=== PATIENT | male | born 1955 | race African-American/Black ===

== ENCOUNTER 2017-06-28 13:50 | Emergency (ER) | payer OTHER ==
[~2017-06-28] VITALS: Ht 175.3 cm; Wt 61.7 kg
[~2017-06-28 13:50] MED LIST: FOSAMAX 70 MG T70 M1; HYDROCHLOROTHIA25 M2 PO; HYDROXYCHLOROQ200 M1; MAXITROL EYE DRO5 ML OP; NABUMETONE 500500 M1; NORCO 5-325 TA1 EACH PO; NORFLEX100 MG; PERCOCET 5-3251 EACH PO; PLAQUENIL200 MG PO; PREDNISONE 20 M20 MG PO; PREDNISONE 5 MG5 M1 PO; SYMBICORT80 MCG/4.1; TRAMADOL 50 MG50 MG PO; ULTRAM 50MG TAB50 MG PO; ZOFRAN4 MG PO
[2017-06-28 15:00] LABS: HEMATOCRIT 39.2 % (42.0-52.0); HEMOGLOBIN 13.1 gm/dL (14.0-18.0); MCH 28.9 pg (26.0-34.0); MCHC 33.4 g/dL (28.0-37.0); MCV 86.6 fL (80.0-100.0); PLATELET COUNT 284 thou/uL (150-400); RBC 4.53 mil/uL (4.50-6.00); RDW 14.9 % (10.5-14.5); WBC 9.8 thou/uL (4.0-11.0)
[2017-06-28 15:06] LABS: MANUAL DIFF YES
[2017-06-28 15:20] LABS: CALCIUM 9.4 mg/dL (8.5-10.1); CREATININE 1.2 mg/dL (0.7-1.3)
[2017-06-28 15:27] LABS: ABSOLUTE NEUTROPHILS 7.8 thou/uL (1.4-8.2); PLATELET ESTIMATE NORMAL; TOTAL CELL COUNT 100
[2017-06-28] MEDS ORDERED: NAPROSYN500 MG PO (16:16)
[2017-06-28 16:35] VITALS: BP 115/75
== END 2017-06-28 16:36 | disposition home or self-care (01) ==
LOC: ER 13:50
PROVIDERS: Nurse Practitioner
DX: M25.552 Pain in left hip (principal); M19.90 Unspecified osteoarthritis, unspecified site; F17.210 Nicotine dependence, cigarettes, uncomplicated; Z88.1 Allergy status to other antibiotic agents; Z88.5 Allergy status to narcotic agent

== ENCOUNTER → 2019-11-10 | Outpatient (CLI) | payer OTHER ==
[~2019-11-10] MED LIST changes: +DURAGESIC1 EACH TRANSDERM; +NAPROSYN500 MG PO; +OXYCODONE HCL 55 MG PO
== END ==
LOC: CAT 11-09 18:46
DX: Z13.6 Encounter for screening for cardiovascular disorders (principal); E78.00 Pure hypercholesterolemia, unspecified; I25.10 Atherosclerotic heart disease of native coronary artery without angina pectoris

== ENCOUNTER → 2019-12-21 | Outpatient (CLI) | payer OTHER | LOC: CAT 12-01 10:17 | PROVIDERS: Family Medicine | DX: R91.1 Solitary pulmonary nodule (principal); E78.00 Pure hypercholesterolemia, unspecified; I25.10 Atherosclerotic heart disease of native coronary artery without angina pectoris; J84.10 Pulmonary fibrosis, unspecified; F12.90 Cannabis use, unspecified, uncomplicated ==

== ENCOUNTER 2021-07-03 08:28 | Emergency (ER) | payer OTHER ==
[~2021-07-03] VITALS: Ht 175.3 cm; Wt 68.0 kg
[2021-07-03] MEDS ORDERED: KEPPRA 500 MG500 M1 PO (08:34)
[2021-07-03] MEDS ORDERED: PROTONIX40 M2 PO (08:35)
[2021-07-03 09:28] LABS: CREATININE 1.2 mg/dL (0.7-1.3)
[2021-07-03 09:34] LABS: ALBUMIN 2.9 g/dL (3.4-5.0); TOTAL PROTEIN 5.9 g/dL (6.4-8.2)
[2021-07-03 09:50] VITALS: BP 126/86
== END 2021-07-03 10:09 | disposition home or self-care (01) ==
LOC: ER 08:28
PROVIDERS: Student in an Organized Health Care Education/Training Program
DX: M79.604 Pain in right leg (principal); M79.605 Pain in left leg; M81.0 Age-related osteoporosis without current pathological fracture; Z88.1 Allergy status to other antibiotic agents; Z88.5 Allergy status to narcotic agent

== ENCOUNTER 2021-07-13 13:39 | Emergency (ER) | payer OTHER ==
[~2021-07-13] VITALS: Ht 175.3 cm; Wt 68.0 kg
[~2021-07-13 13:39] MED LIST changes: +KEPPRA 500 MG500 M1 PO; +PROTONIX40 M2 PO
[2021-07-13 16:37] VITALS: BP 117/75
== END 2021-07-13 16:39 | disposition home or self-care (01) ==
LOC: ER 13:39
DX: S92.514A Nondisplaced fracture of proximal phalanx of right lesser toe(s), initial encounter for closed fracture (principal); M81.0 Age-related osteoporosis without current pathological fracture; M19.90 Unspecified osteoarthritis, unspecified site; Z79.899 Other long term (current) drug therapy; Z88.5 Allergy status to narcotic agent; Z88.1 Allergy status to other antibiotic agents; W22.8XXA Striking against or struck by other objects, initial encounter; Y93.89 Activity, other specified; Y92.89 Other specified places as the place of occurrence of the external cause; Y99.8 Other external cause status